=== PATIENT | female | born 1990 | race Caucasian/White ===

== ENCOUNTER 2016-11-30 18:27 | Emergency (ER) | payer OTHER | END 2016-11-30 21:23 | disposition home or self-care (01) | LOC: ER 18:27 | DX: O99.512 Diseases of the respiratory system complicating pregnancy, second trimester (principal); O99.332 Smoking (tobacco) complicating pregnancy, second trimester; F17.210 Nicotine dependence, cigarettes, uncomplicated; Z3A.22 22 weeks gestation of pregnancy; Z86.19 Personal history of other infectious and parasitic diseases | CPT/HCPCS: 87400; 99283 ==